=== PATIENT | female | born 1955 | race Caucasian/White ===

== ENCOUNTER 2017-12-23 07:25 | Day surgery (SDC) | payer BC ==
[~2017-12-23] VITALS: Ht 177.8 cm; Wt 70.3 kg
[~2017-12-23 07:25] MED LIST: ALPRAZOLAM0.5 MG PO; ATENOLOL50 MG PO; CARISOPRODOL350 MG PO; DIFLUCAN100 M1 PO; FENOFIBRATE MI200 MG PO; HYDROCODONE/ACE1 TAB PO; LEVOTHYROXIN100 MC1 PO; LEVOTHYROXIN150 MCG PO; LISINOPRIL10 MG PO; LOVASTATIN40 MG PO; OXYCONTIN10 MG PO; XTAMPZA ER9 MG PO; ZOLPIDEM10 M1 PO
[2017-12-23 09:44] VITALS: BP 125/78
== END 2017-12-23 10:00 | disposition home or self-care (01) | DRG 392 ==
LOC: ENDO 07:25 → ORM 08:15 → ENDO 08:35 → ORM 08:50 → ENDO 08:50
PROVIDERS: ATTEND Internal Medicine Gastroenterology
PROC: 0DJD8ZZ Inspection of Lower Intestinal Tract, Via Natural or Artificial Opening Endoscopic (ICD-10-PCS; principal; 2017-12-23)
DX: K59.00 Constipation, unspecified (principal); E03.9 Hypothyroidism, unspecified; K64.4 Residual hemorrhoidal skin tags; R19.5 Other fecal abnormalities; R14.0 Abdominal distension (gaseous); R11.0 Nausea; K21.9 Gastro-esophageal reflux disease without esophagitis; E78.00 Pure hypercholesterolemia, unspecified; I10 Essential (primary) hypertension; K80.20 Calculus of gallbladder without cholecystitis without obstruction; F41.9 Anxiety disorder, unspecified

== ENCOUNTER 2017-12-28 06:09 | Day surgery (SDC) | payer BC ==
[~2017-12-28] VITALS: Ht 177.8 cm; Wt 68.0 kg
[2017-12-28] MEDS ORDERED: IBUPROFEN 200200 MG PO (09:09)
[2017-12-28 09:50] VITALS: BP 134/68
== END 2017-12-28 10:15 | disposition home or self-care (01) | DRG 419 ==
LOC: ORM 06:09
PROVIDERS: ATTEND Surgery
PROC: 0FT44ZZ Resection of Gallbladder, Percutaneous Endoscopic Approach (ICD-10-PCS; principal; 2017-12-28)
DX: K80.10 Calculus of gallbladder with chronic cholecystitis without obstruction (principal)
CPT/HCPCS: J2710